=== PATIENT | female | born 1990 | race Caucasian/White ===

== ENCOUNTER 2023-01-25 15:25 | Emergency (ER) | payer OTHER ==
[2023-01-25 18:29] LABS: Hematocrit 44.4 % (36.0-45.0); Lymphocytes % 35.4 % (15.3-44.8); MCV 86.2 fL (80-100); MPV 7.8 fL (7.6-11.3); RBC Red Blood Cell Count 5.16 M/uL (3.86-4.86)
[2023-01-25 18:38] LABS: Specific Gravity 1.027 (1.005-1.030)
[2023-01-25 18:39] LABS: Calcium Oxalate Crystals- Ur Few /HPF (None Seen); Specific Gravity 1.027 (1.005-1.030); Urine Bacteria None Seen /HPF (<20); Urine Bilirubin NEGATIVE (Negative); Urine Blood 2+ (Negative); Urine Clarity Clear (Clear); Urine Color Yellow (Yellow); Urine Glucose NEGATIVE (Negative); Urine Mucus Slight /HPF (None Seen); Urine Protein TRACE (Negative); Urine Urobilinogen Normal (Normal); Urine pH 5.5 (5.0-7.0)
[2023-01-25 18:47] LABS: Albumin 4.3 g/dL (3.4-5.0); Bilirubin Total 0.3 mg/dL (0.2-1.0); Potassium 3.5 mEq/L (3.5-5.1); Protein, Total 8.3 g/dL (6.4-8.2)
--- NOTE | 2023-01-25 19:05 | RAD REPORT ---
EXAM DESCRIPTION: CT - Abdomen Pelvis W Contrast - 01/25/2023 6:50 pm CLINICAL HISTORY: Abdominal pain/vomiting COMPARISON: none. TECHNIQUE: Computed axial tomography of the abdomen pelvis was obtained. 100 cc Isovue-300 was admin istered intravenously. Oral contrast was not requested which limits evaluation of bowel and appendix All CT scans are performed using dose optimization technique as appropriate and may include automated exposure control or mA/KV adjustment according to patient size. FINDINGS: The liver, spleen, pancreas, adrenal and kidneys appear unremarkable. There is no evidence of diverticulitis. Fluid in nondilated small bowel Normal appendix No adnexal mass IMPRESSION: Fluid in nondilated small bowel may indicate an enteritis
[2023-01-25] MEDS ORDERED: CIPROFLOXACIN HCL 500 MG TAB ONE (19:50)
[2023-01-25] MEDS ORDERED: metroNIDAZOLE 500 MG TABLET ONE (19:50)
--- NOTE | 2023-01-25 20:04 | ER ---
Nurse's Notes [facility] Name: Camilla Pop Age: 32 yrs Sex: Female : 1990 Arrival Date: 01/25/2023 Time: 15:25 Bed 7 Private MD: Diagnosis: Noninfective gastroenteritis and colitis, unspecified;Constipation, unspecified Presentation: 01/25 16:15 Chief complaint: Patient states: has not had proper BM X 3 weeks, was referred to GI iw doc , is due for CT with contrast, pain is getting worse, can't eat or sleep. Coronavirus screen: At this time, the client does not indicate any symptoms associated with coronavirus-19. Ebola Screen: Patient negative for fever greater than or equal to 101.5 degrees Fahrenheit, and additional compatible Ebola Virus Disease symptoms Patient denies exposure to infectious person. Patient denies travel to an Ebola-affected area in the 21 days before illness onset. No symptoms or risks identified at this time. Initial Sepsis Screen: Does the patient meet any 2 criteria? No. Patient's initial sepsis screen is negative. Does the patient have a suspected source of infection? No. Patient's initial sepsis screen is negative. Risk Assessment: Do you want to hurt yourself or someone else? Patient reports no desire to harm self or others. Onset of symptoms was January 04, 2023. 16:15 Method Of Arrival: Ambulatory 16:15 Acuity: HARVINDER 3 iw Historical: - Allergies: 16:17 Codeine; iw - Home Meds: 16:17 None [Active]; iw - PMHx: 16:17 None; iw - PSHx: 16:17 bone graft; iw - Immunization history:: Adult Immunizations. Screenin:16 [facility] ED Fall Risk Assessment (Adult) Score/Fall Risk Level 0 - 2 = Low Risk. Abuse eh3 screen: Denies threats or abuse. Denies injuries from another. Nutritional screening: No deficits noted. Tuberculosis screening: No symptoms or risk factors identified. Vital Signs: 16:15 BP 132 / 76; Pulse 77; Resp 16; Temp 97.7; Pulse Ox 100% on R/A; iw 18:16 BP 95 / 59; Pulse 65; Resp 18; Pulse Ox 100% on R/A; eh3 18:30 BP 109 / 68; Pulse 65; Resp 18; Pulse Ox 100% on R/A; eh3 19:00 BP 101 / 67; Pulse 79; Resp 18; Pulse Ox 100% on R/A; eh3 ED Course: 15:26 Patient arrived in ED. am2 16:16 Triage completed. iw 16:17 Arm band placed on. iw 16:19 Bobbi Rivera FNP-C is PHCP. snw 16:19 Subhash Jaimes MD is Attending Physician. snw 18:09 Verónica Lopez RN is Primary Nurse. eh3 18:22 CBC with Diff Sent. mm9 18:22 CMP Sent. mm9 18:22 Lipase Sent. mm9 18:22 Test, Urine Sent. mm9 18:22 Urinalysis w/ reflexes Sent. mm9 18:22 Initial lab(s) drawn, by me, sent to lab. Urine collected: clean catch specimen, mm9 cloudy. Inserted saline lock: 22 gauge in right antecubital area, using aseptic technique. Blood collected. 18:23 Patient has correct armband on for positive identification. Placed in gown. Bed in low mm9 position. Call light in reach. Side rails up X 1. Adult w/ patient. Warm blanket given. Pulse ox on. NIBP on. 18:52 Abdomen In Process Unspecified. EDMS 20:47 IV discontinued, intact, bleeding controlled, No redness/swelling at site. Pressure eh3 dressing applied. Administered Medications: 18:21 Drug: NS 0.9% IV 1000 ml Route: IV; Rate: 1 bolus; Site: right antecubital; eh3 20:07 Follow up: IV Status: Completed infusion; IV Intake: 1000ml eh3 18:22 Drug: Famotidine IVP 20 mg Route: IVP; Site: right antecubital; eh3 20:07 Follow up: Response: No adverse reaction eh3 19:45 Drug: metroNIDAZOLE PO 500 mg Route: PO; eh3 20:45 Follow up: Response: No adverse reaction eh3 19:45 Drug: Ciprofloxacin PO 500 mg Route: PO; eh3 20:45 Follow up: Response: No adverse reaction eh3 20:07 Not Given (Medicine not available in hospitall): Ivermectin 12 mg PO once; as a single eh3 dose Intake: 20:07 IV: 1000ml; Total: 1000ml. eh3 Outcome: 20:04 Discharge ordered by MD. winkler 20:47 Discharged to home ambulatory. [facility] 20:47 Condition: stable 20:47 Discharge instructions given to patient, Instructed on discharge instructions, follow up and referral plans. medication usage, Demonstrated understanding of instructions, follow-up care, medications, Prescriptions given X 2. 20:47 Patient left the ED. [facility] Signatures: Dispatcher [employer] EDMS Bobbi Rivera, CENTER PUNCH OPERATOR-C CENTER PUNCH OPERATOR-Csnw Livia Pham, RN OZZY Olga Lidia Wong 2 Verónica Lopez RN RN 3 Margaret Osorio mm9 Corrections: (The following items were deleted from the chart) 20:12 16:15 [facility] ED Fall Risk Assessment (Adult) Score/Fall Risk Level 0 - 2 = Low Risk [place] [id number] 20:12 16:15 Abuse screen: Denies threats or abuse. Denies injuries from another. [place] [id number] 20:12 16:15 Nutritional screening: No deficits noted. [place] [id number] 20:12 16:15 Tuberculosis screening: No symptoms or risk factors identified. [place] [id number]
--- NOTE | 2023-01-25 20:04 | EDPHYS ---
Physician Documentation [facility] Name: Camilla Pop Age: 32 yrs Sex: Female : 1990 Arrival Date: 01/25/2023 Time: 15:25 Bed 7 Private MD: ED Physician Subhash Jaimes HPI: 01/25 16:36 This 32 yrs old Female presents to ER via Ambulatory with complaints of Abdominal Pain, snw Diarrhea. 16:36 The patient presents with abdominal pain that is diffuse. Onset: The symptoms/episode snw began/occurred gradually, 3 week(s) ago, and became persistent. The symptoms do not radiate. Associated signs and symptoms: Pertinent positives: constipation, pt has seen PCP, took Mag Citrate and did have BM but her bowel movements are nothing like normal for her. Pt saw GI and he gave samples of Linzess. Pt with bloating, fatigue, cramping, fear. Will have MRI with contrast in 2 weeks but pt tearful in triage. The symptoms are described as achy, crampy, vague. Severity of pain: At its worst the pain was mild moderate. The patient has not experienced similar symptoms in the past. as noted. Historical: - Allergies: 16:17 Codeine; iw - Home Meds: 16:17 None [Active]; iw - PMHx: 16:17 None; iw - PSHx: 16:17 bone graft; iw - Immunization history:: Adult Immunizations. ROS: 16:36 Constitutional: Negative for fever, chills, and weight loss, Eyes: Negative for injury, snw pain, redness, and discharge, ENT: Negative for injury, pain, and discharge, Neck: Negative for injury, pain, and swelling, Cardiovascular: Negative for chest pain, palpitations, and edema, Respiratory: Negative for shortness of breath, cough, wheezing, and pleuritic chest pain, Back: Negative for injury and pain, : Negative for injury, bleeding, discharge, and swelling, MS/Extremity: Negative for injury and deformity, Skin: Negative for injury, rash, and discoloration, Neuro: Negative for headache, weakness, numbness, tingling, and seizure, Psych: Negative for depression, anxiety, suicide ideation, homicidal ideation, and hallucinations. 16:36 Abdomen/GI: Positive for abdominal pain, constipation, abdominal cramps, abdominal distension. Exam: 16:35 Constitutional: This is a well developed, well nourished patient who is awake, alert, snw and in no acute distress. Head/Face: Normocephalic, atraumatic. Eyes: Pupils equal round and reactive to light, extra-ocular motions intact. Lids and lashes normal. Conjunctiva and sclera are non-icteric and not injected. Cornea within normal limits. Periorbital areas with no swelling, redness, or edema. ENT: Nares patent. No nasal discharge, no septal abnormalities noted. Tympanic membranes are normal and external auditory canals are clear. Oropharynx with no redness, swelling, or masses, exudates, or evidence of obstruction, uvula midline. Mucous membranes moist. Neck: Trachea midline, no thyromegaly or masses palpated, and no cervical lymphadenopathy. Supple, full range of motion without nuchal rigidity, or vertebral point tenderness. No Meningismus. Chest/axilla: Normal chest wall appearance and motion. Nontender with no deformity. No lesions are appreciated. Cardiovascular: Regular rate and rhythm with a normal S1 and S2. No gallops, murmurs, or rubs. Normal PMI, no JVD. No pulse deficits. Respiratory: Lungs have equal breath sounds bilaterally, clear to auscultation and percussion. No rales, rhonchi or wheezes noted. No increased work of breathing, no retractions or nasal flaring. Back: No spinal tenderness. No costovertebral tenderness. Full range of motion. Skin: Warm, dry with normal turgor. Normal color with no rashes, no lesions, and no evidence of cellulitis. MS/ Extremity: Pulses equal, no cyanosis. Neurovascular intact. Full, normal range of motion. Neuro: Awake and alert, GCS 15, oriented to person, place, time, and situation. Cranial nerves II-XII grossly intact. Motor strength 5/5 in all extremities. Sensory grossly intact. Cerebellar exam normal. Normal gait. Psych: Awake, alert, with orientation to person, place and time. Behavior, mood, and affect are within normal limits. 16:35 Abdomen/GI: Inspection: abdomen appears normal, Bowel sounds: active, Palpation: abdomen is soft and non-tender, in all quadrants. Vital Signs: 16:15 BP 132 / 76; Pulse 77; Resp 16; Temp 97.7; Pulse Ox 100% on R/A; iw 18:16 BP 95 / 59; Pulse 65; Resp 18; Pulse Ox 100% on R/A; eh3 18:30 BP 109 / 68; Pulse 65; Resp 18; Pulse Ox 100% on R/A; eh3 19:00 BP 101 / 67; Pulse 79; Resp 18; Pulse Ox 100% on R/A; eh3 MDM: 16:19 Patient medically screened. snw 19:37 Differential diagnosis: bowel obstruction, cholecystitis, Cholelithiasis, snw diverticulitis, Endometriosis, non-specific abd pain, Pyelonephritis. Data reviewed: vital signs, nurses notes, lab test result(s), radiologic studies. Historians other than the Patient: Parent: Mom. Counseling: I had a detailed discussion with the patient and/or guardian regarding: the historical points, exam findings, and any diagnostic results supporting the discharge/admit diagnosis, lab results, radiology results, the need for outpatient follow up, for definitive care, to return to the emergency department if symptoms worsen or persist or if there are any questions or concerns that arise at home. Special discussion: Based on the patient's Hx, exam, and Dx evaluation, there is no indication for emergent surgery or inpatient Tx. It is understood by the patient/guardian that if the Sx's persist or worsen they need to return immediately for re-evaluation. Based on the history and exam findings, there is no indication for further emergent testing or inpatient evaluation. I discussed with the patient/guardian the need to see the stone rubber for further evaluation of the symptoms. 01/25 16:32 Order name: CBC with Diff; Complete Time: 18:42 snw 01/25 16:32 Order name: CMP; Complete Time: 18:50 snw 01/25 16:32 Order name: Lipase; Complete Time: 18:50 snw 01/25 16:32 Order name: Test, Urine; Complete Time: 18:42 snw 01/25 16:32 Order name: Urinalysis w/ reflexes; Complete Time: 18:42 snw 01/25 17:58 Order name: Abdomen ; Complete Time: 19:09 EDMS 01/25 16:32 Order name: IV Saline Lock; Complete Time: 18:22 snw 01/25 16:32 Order name: Labs collected and sent; Complete Time: 18:22 snw Administered Medications: 18:21 Drug: NS 0.9% IV 1000 ml Route: IV; Rate: 1 bolus; Site: right antecubital; 3 20:07 Follow up: IV Status: Completed infusion; IV Intake: 1000ml 3 18:22 Drug: Famotidine IVP 20 mg Route: IVP; Site: right antecubital; 3 20:07 Follow up: Response: No adverse reaction eh3 19:45 Drug: metroNIDAZOLE PO 500 mg Route: PO; eh3 20:45 Follow up: Response: No adverse reaction eh3 19:45 Drug: Ciprofloxacin PO 500 mg Route: PO; eh3 20:45 Follow up: Response: No adverse reaction eh3 20:07 Not Given (Medicine not available in hospitall): Ivermectin 12 mg PO once; as a single 3 dose Disposition Summary: 01/25/23 20:04 Discharge Ordered Location: Home snw Condition: Stable snw Diagnosis - Noninfective gastroenteritis and colitis, unspecified snw - Constipation, unspecified snw Followup: snw - With: Emergency Department - When: As needed - Reason: Worsening of condition Followup: snw - With: Private Physician - When: 10 - 14 days - Reason: Recheck today's complaints, Continuance of care Discharge Instructions: - Discharge Summary Sheet snw - Constipation, Adult snw - Abdominal Bloating snw Forms: - Medication Reconciliation Form snw - Thank You Letter snw - Antibiotic Education snw - Prescription Opioid Use snw Prescriptions: - ivermectin 3 mg Oral tablet - take 2 tablet by ORAL route once as a single dose, in one week; 1 tablet; snw Refills: 0, Product Selection Permitted - Cipro 500 mg Oral Tablet - take 1 tablet by ORAL route every 12 hours for 10 days; 20 tablet; Refills: 0, snw Product Selection Permitted - Flagyl 500 mg Oral Tablet - take 1 tablet by ORAL route every 8 hours for 7 days; 21 tablet; Refills: 0, snw Product Selection Permitted Signatures: Dispatcher [employer] EDBobbi Stoll FNP-C FNP-Csnw Livia Pham RN RN iw Verónica Lopez RN RN 3 Corrections: (The following items were deleted from the chart) 18:33 18:05 Abdomen Pelvis W Con+CT.RAD.BRZ ordered. EDMS EDMS
[2023-01-25 21:13] VITALS: TEMP 97.7; O2SAT 100
[2023-01-25 21:19] VITALS: BP 101/67
== END 2023-01-25 20:47 | disposition home or self-care (01) ==
LOC: ER 15:25
DX: K52.9 Noninfective gastroenteritis and colitis, unspecified (principal); K59.00 Constipation, unspecified; Z88.5 Allergy status to narcotic agent
CPT/HCPCS: 96361; 85025; 81001; 36415; 81025; 83690; 80053; 74177; 96374; 99284; Q9967